=== PATIENT | male | born 1985 | race Caucasian/White ===

== ENCOUNTER 2017-10-05 16:36 | Emergency (ER) | payer MEDICARE ==
--- NOTE | 2017-10-05 17:04 | ERPHSYRPT ---
- History of Present Illness Time Seen by Provider: 10/05/17 16:44 Source: patient Patient Subjective Stated Complaint: pt states for months he has had bilateral lower extremity swelling. pt states his left left has been worse over the past several days. pt is concerned he has a blood clot in his left leg. pt has a history of kidney failure. Triage Nursing Assessment: pt pink, warm, dry. pt ambulated into Er without difficulty. pedal pulses strong and equal bilaterally. redness noted to left calf. negative alejandra's sign to left leg. Physician History: CC: swelling left leg Hx: 32 y/o patient of Dr Lozano/Juan with hx of nephrotic syndrome. He has increased swelling and pain with some redness in the left leg. No hx of venous thromboembolic disease. He sees Dr Martinez. He is on prednisone. No chest pain or dyspnea. Some cough. No fever or chills. Severity: moderate Allergies/Adverse Reactions: Penicillins Allergy (Mild, Verified 10/05/17 16:52) Home Medications: Famotidine 20 mg [Pepcid 20 MG] 20 mg PO BID 12/03/12 [History] Furosemide 20 mg [Lasix 20 mg] 20 mg PO DAILY 12/03/12 [History] Potassium Chloride 20 Meq [Klor-Con 20 MEQ] 20 meq PO BID 12/03/12 [History] Pravastatin Sodium 10 mg [Pravachol 10 MG] 40 mg PO DAILY 12/03/12 [History] Calcium Carbonate/Vitamin D3 [Calcium 600 + Vit D3 Caplet] 1 each PO BID [History] Metoprolol Succinate 50 mg [Toprol Xl 50 MG] 50 mg PO DAILY 04/09/16 [ History] Prednisone 20 mg PO .EVERYOTHERDAY 04/09/16 [History] Ramipril [Altace] 2.5 mg PO DAILY 04/09/16 [History] Acetaminophen [Tylenol Arthritis] 1 tab PO Q6H 07/02/16 [History] Bumetanide 1 mg PO DAILY 10/05/17 [History] Hx Tetanus, Diphtheria Vaccination/Date Given: Yes (up to date) Hx Influenza Vaccination/Date Given: No Hx Pneumococcal Vaccination/Date Given: No Immunizations Up to Date: Yes - Review of Systems Constitutional: Malaise, No Fever, No Chills Eyes: No Symptoms Ears, Nose, & Throat: No Symptoms Respiratory: Cough, No Dyspnea Cardiac: Edema, No Chest Pain, No Syncope Abdominal/Gastrointestinal: No Abdominal Pain, No Nausea, No Vomiting, No Diarrhea Genitourinary Symptoms: No Dysuria Skin: Other (redness left leg), No Rash Neurological: No Headache All Other Systems: Reviewed and Negative - Past Medical History Pertinent Past Medical History: Yes Neurological History: No Pertinent History ENT History: Cataracts Cardiac History: High Cholesterol, Hypertension, Other Respiratory History: Bronchitis, Pneumonia Endocrine Medical History: Hyperthyroidism Musculoskeletal History: Osteoporosis GI Medical History: Ulcer, Other History: Other Psycho-Social History: No Pertinent History Male Reproductive Disorders: No Pertinent History Other Medical History: nephrotic disorder, low potassium. HEART PALPITAITONS - Past Surgical History Past Surgical History: Yes Neuro Surgical History: No Pertinent History Cardiac: No Pertinent History Respiratory: No Pertinent History Gastrointestinal: Hernia Repair Genitourinary: No Pertinent History Musculoskeletal: Orthopedic Surgery Male Surgical History: No Pertinent History Other Surgical History: left KNEE surgery x3, cysts removed from back, HERNIA X 2 - Social History Smoking Status: Never smoker Exposure to second hand smoke: Yes Drug Use: none Patient Lives Alone: No (here with [id number]) - Nursing Vital Signs Nursing Vital Signs: Initial Vital Signs Temperature 98.5 F 10/05/17 16:46 Pulse Rate 107 H 10/05/17 16:46 Respiratory Rate 18 10/05/17 16:46 Blood Pressure 152/71 10/05/17 16:46 O2 Sat by Pulse Oximetry 99 10/05/17 16:46 Pain Scale Pain Intensity 10 - Physical Exam General Appearance: alert Eye Exam: PERRL/EOMI Ears, Nose, Throat Exam: normal ENT inspection, moist mucous membranes Neck Exam: normal inspection, non-tender, supple Respiratory Exam: normal breath sounds Cardiovascular Exam: regular rate/rhythm, No murmur, No friction rub, No gallop Gastrointestinal/Abdomen Exam: soft, other (subjective bloating), No tenderness , No distention, No mass Male Genitalia Exam: other (moderate warts), No testicular tenderness Back Exam: normal inspection, rash (acne folliculitis) Extremity Exam: other (right leg trace swelling. Left leg has 1+ edema, some erythema, and tenderness. Pulses intact.) Neurologic Exam: alert, oriented x 3, cooperative, sensation nml, No motor deficits Skin Exam: warm, dry, No rash SpO2 Interpretation: normal SpO2: 99 Oxygen Delivery: Room Air - Course Nursing assessment & vital signs reviewed: Yes - Radiology Ultrasound Exam left leg Ultrasound: Other (negative for DVT. Edema fluid present.) Ordered Tests: Active Orders 24 hr Category Date Time Status Clean Catch Urine Specimen STAT Care 10/05/17 16:56 Active IV Insertion STAT Care 10/05/17 16:56 Active CHEST 2 VIEWS (PA AND LAT) Stat Exams 10/05/17 16:56 Taken VENOUS UNILAT/LIMITED EXTREMIT [US] Stat Exams 10/05/17 16:55 Ordered CBC W DIFF Stat Lab 10/05/17 17:30 Completed CMP Stat Lab 10/05/17 17:30 Completed UA W/ MICROSCOPIC Stat Lab 10/05/17 17:15 Completed Lab/Rad Data: Laboratory Result Diagrams 10/05/17 17:30 10/05/17 17:30 Laboratory Results 10/05/17 10/05/17 10/05/17 Range/Units 17:30 17:30 17:15 WBC 22.0 H (4.0-10.5) K/mm3 RBC 4.88 (4.1-5.6) M/mm3 Hgb 14.0 (12.5-18.0) gm/dl Hct 41.2 L (42-50) % MCV 84.4 (78-100) fl MCH 28.7 (26-32) pg MCHC 34.0 (32-36) g/dl RDW 14.6 H (11.5-14.0) % Plt Count 352 (150-450) K/mm3 MPV 9.7 H (6-9.5) fl Gran % 87.8 H (36.0-66.0) % Lymphocytes % 6.0 L (24.0-44.0) % Monocytes % 6.1 (0.0-12.0) % Eosinophils % 0.0 (0.00-5.0) % Basophils % 0.1 (0.0-0.4) % Basophils # 0.02 (0-0.4) Sodium 141 (136-145) mEq/L Potassium 4.4 (3.5-5.1) mEq/L Chloride 109 H (98-107) mEq/L Carbon Dioxide 25.3 (21-32) mEq/L Anion Gap 11.5 (5-15) MEQ/L BUN 16 (9-20) mg/dL Creatinine 0.76 (0.55-1.30) mg/dl Estimated GFR > 60 ML/MIN Glucose 128 H (70-110) MG/DL Calcium 7.5 L (8.5-10.1) mg/dL Total Bilirubin 0.10 L (0.2-1.0) mg/dL AST 12 L (15-37) U/L ALT 10 L (12-78) U/L Alkaline Phosphatase 49 (46-116) U/L Serum Total Protein 4.0 L (6.4-8.2) gm/dL Albumin < 0.6 L (3.4-5.0) g/dL Ur Collection Type CLEAN CATCH Urine Color YELLOW (YELLOW) Urine Appearance CLEAR (CLEAR) Urine pH 8.0 (5-6) Ur Specific Chamberlain 1.005 (1.005-1.025) Urine Protein 300 (Negative) Urine Ketones NEGATIVE (NEGATIVE) Urine Blood NEGATIVE (0-5) Sage/ul Urine Nitrite NEGATIVE (NEGATIVE) Urine Bilirubin NEGATIVE (NEGATIVE) Urine Urobilinogen NORMAL (0-1) mg/dL Ur Leukocyte Esterase NEGATIVE (NEGATIVE) Urine Microscopic RBC 0-2 (0-2) /HPF Ur Epithelial Cells RARE (FEW) /HPF Urine Culture Reflexed NO (NO) Urine Glucose NEGATIVE (NEGATIVE) mg/dL Specimen Received 10/05/17 1715 - Progress Progress Note: 10/05/17 17:03 Will get sono to evaluate for DVT. 10/05/17 18:37 Negative for DVT. Leukocytosis presumed secondary to steroids. Will cover with kefzol/keflex for cellulitis. Instr given. 10/05/17 18:40 Pt reports family told him pcn allergic. He has taken keflex in past without problems. Counseled pt/family regarding: lab results, diagnosis, need for follow-up, rad results - Departure Time of Disposition: 18:38 Departure Disposition: Home Clinical Impression: Cellulitis of left leg, Nephrotic syndrome Condition: Stable Critical Care Time: No Referrals: CRISTINA LOZANO MD [Primary Care Provider] - Instructions: Cellulitis -- Adult Additional Instructions: Return for high fever, worsened redness or severe pain, confusion, or concerns. Follow up with Dr Ruy Prado Saturday or Dr Martinez. Rx keflex. Elevate legs. Prescriptions: Cephalexin Mh 500 mg [Keflex 500 mg] 1 cap PO QID #40 capsule
[2017-10-05 17:38] LABS: BASOPHIL % 0.1 % (0.0-0.4); Granulocytes % 87.8 % (36.0-66.0); Mean Cell Volume 84.4 fl (78-100); Mean Corpuscular Hemoglobin 28.7 pg (26-32); Mean Platelet Volume 9.7 fl (6-9.5); Monocytes % 6.1 % (0.0-12.0); Platelet Count 352 K/mm3 (150-450); Red Blood Count 4.88 M/mm3 (4.1-5.6); Red Cell Distribution Width 14.6 % (11.5-14.0)
[2017-10-05 17:44] LABS: Collection Type CLEAN CATCH
[2017-10-05 17:45] LABS: Bilirubin NEGATIVE (NEGATIVE); Blood NEGATIVE Ery/ul (0-5); COMPLETE URINE MICROSCOPIC? YES; Epithelial Cells RARE /HPF (FEW); Glucose NEGATIVE (NEGATIVE); Leukocyte Esterase NEGATIVE (NEGATIVE)
[2017-10-05 17:46] LABS: ADD URINE CULTURE? NO (NO)
[2017-10-05 18:01] LABS: ALKALINE PHOSPHATASE 49 U/L (46-116); ANION GAP 11.5 MEQ/L (5-15); BLOOD UREA NITROGEN 16 mg/dL (9-20); CHLORIDE 109 mEq/L (98-107); Carbon Dioxide 25.3 mEq/L (21-32); Glucose 128 MG/DL (70-110); Potassium 4.4 mEq/L (3.5-5.1); SGOT/AST 12 U/L (15-37); SGPT/ALT 10 U/L (12-78); SODIUM 141 mEq/L (136-145)
[2017-10-05 18:15] LABS: ALBUMIN < 0.6 g/dL (3.4-5.0)
[2017-10-05] MEDS ORDERED: CEFAZOLIN 2 GM-D5W BAG** 2 GM/50 ML ML IV STA (18:31)
[2017-10-05] MEDS ORDERED: KEFLEX 500 MG PO ONE (18:36)
[2017-10-05] MEDS ORDERED: KEFZOL 1 GM ONE (18:43)
[2017-10-05] MEDS ORDERED: D5w 100ML Mini Bag 100 ML 100 ML IV ONE (18:44)
--- NOTE | 2017-10-05 19:27 | XRAY ---
Indication: Edema. Nephrotic syndrome. Comparison: November 13, 2015. PA/lateral chest again demonstrates normal heart and lungs. Bony thorax intact again with scoliosis. No new/acute findings.
[2017-10-05] MEDS ORDERED: KEFLEX 500 MG ONE (19:39)
[2017-10-05 19:51] VITALS: BP 117/64; PULSE 82; O2SAT 97
--- NOTE | 2017-10-06 08:27 | XRAY ---
Indication: Left leg pain and redness. Two-dimensional sonogram and color Doppler imaging of the major venous vessels of the left leg was performed. Comparison: None No thrombus seen in the examined deep venous vessels of the left leg including greater saphenous vein. Veins demonstrate normal compressibility. Venous waveforms are normal with and without augmentation. Impression: Left leg negative for DVT. Comment: Preliminary report was given.
== END 2017-10-05 19:50 | disposition home or self-care (01) ==
LOC: ED 16:36
DX: L03.116 Cellulitis of left lower limb (principal); N04.9 Nephrotic syndrome with unspecified morphologic changes; Z79.899 Other long term (current) drug therapy; E78.00 Pure hypercholesterolemia, unspecified; I10 Essential (primary) hypertension; E05.90 Thyrotoxicosis, unspecified without thyrotoxic crisis or storm
CPT/HCPCS: 36000; 36415; 71020; 80053; 81000; 85025; 93971; 96360; 96365; 99284; J0690; A9270-GY

== ENCOUNTER 2018-08-27 14:21 | Emergency (ER) | payer MEDICARE ==
[2018-08-27] MEDS ORDERED: Sodium Chloride 0.9% 1000 ML 1,000 ML IV STA (15:01)
[2018-08-27] MEDS ORDERED: Sodium Chloride 0.9% 1000 ML 1,000 ML ONE (15:14)
[2018-08-27 15:31] LABS: BASOPHIL % 0.2 % (0.0-0.4); Basophil (Absolute #) 0.02 (0-0.4); Eosinophil % 0.1 % (0.00-5.0); Eosinophil (Absolute #) 0.01 (0-0.5); Granulocyte Absolute (ANC) 9.11 (1.4-6.9); Granulocytes % 87.9 % (36.0-66.0); Hematocrit 36.9 % (42-50); Hemoglobin 12.6 gm/dl (12.5-18.0); Lymphocyte (Absolute #) 0.85 (1.0-4.6); Lymphocytes % 8.2 % (24.0-44.0); Mean Cell Volume 87.2 fl (78-100); Mean Corpuscular Hemoglobin 29.8 pg (26-32); Mean Corpuscular Hgb Concent. 34.1 g/dl (32-36); Mean Platelet Volume 10.7 fl (6-9.5); Monocyte (Absolute #) 0.37 (0.0-1.3); Monocytes % 3.6 % (0.0-12.0); Platelet Count 356 K/mm3 (150-450); Red Blood Count 4.23 M/mm3 (4.1-5.6); Red Cell Distribution Width 12.6 % (11.5-14.0); White Blood Count 10.4 K/mm3 (4.0-10.5)
[2018-08-27 15:42] LABS: ANION GAP 17.3 MEQ/L (5-15); Calcium 9.9 mg/dL (8.4-10.2); Creatinine 1 3.01 mg/dL (0.66-1.25)
[2018-08-27 15:57] LABS: Potassium 6.6 mmol/L (3.5-5.1)
[2018-08-27] MEDS ORDERED: Kayexylate 15 GM/60 ML PO ONE (16:02)
[2018-08-27] MEDS ORDERED: CALCIUM CHLORIDE 10% 1000 MG IV ONE (16:03)
[2018-08-27] MEDS ORDERED: CALCIUM CHLORIDE IV ONE (16:30)
[2018-08-27] MEDS ORDERED: SODIUM CHLORIDE 0.9% IV ONE (16:30)
--- NOTE | 2018-08-27 16:31 | ERPHSYRPT ---
- History of Present Illness Time Seen by Provider: 08/27/18 14:35 Source: patient Exam Limitations: clinical condition Patient Subjective Stated Complaint: Pt states "For the past two days I have been dry heaving and had diarrhea. I just do not feel well." Triage Nursing Assessment: Pt alert and oriented x 3, skin pwd. PT ambultes with an upright steady gait, able to speak in clear full sentences. Pt in no respiratory distress. Physician History: PATIENT WITH A HISTORY OF HYPERTSION, RENAL INSUFFICIENCY AND NEPHROTIC SYNDROME COMPLAINS OF ACUTE ONSET OF WATERY DIARRHEA FOR THE PAST 2 DAYS, 8-10 EPISODES DAILY ASSOCIATED WITH NAUSEA. DENIES FEVER, WEAKNESS, MELENA, ABDOMINAL PAIN OR URINARY SYMPTOMS. Timing/Duration: yesterday Severity: moderate Modifying Factors: Improves With: nothing Associated Symptoms: nausea Allergies/Adverse Reactions: Penicillins Allergy (Mild, Verified 10/05/17 16:52) Home Medications: Famotidine 20 mg [Pepcid 20 MG] 20 mg PO BID 12/03/12 [History] Furosemide 20 mg [Lasix 20 mg] 20 mg PO DAILY 12/03/12 [History] Potassium Chloride 20 Meq [Klor-Con 20 MEQ] 20 meq PO BID 12/03/12 [History] Pravastatin Sodium 10 mg [Pravachol 10 MG] 40 mg PO DAILY 12/03/12 [History] Calcium Carbonate/Vitamin D3 [Calcium 600 + Vit D3 Caplet] 1 each PO BID [History] Metoprolol Succinate 50 mg [Toprol Xl 50 MG] 50 mg PO DAILY 04/09/16 [ History] Prednisone 20 mg PO .EVERYOTHERDAY 04/09/16 [History] Ramipril [Altace] 2.5 mg PO DAILY 04/09/16 [History] Acetaminophen [Tylenol Arthritis] 1 tab PO Q6H 07/02/16 [History] Bumetanide 1 mg PO DAILY 10/05/17 [History] Hx Tetanus, Diphtheria Vaccination/Date Given: Yes Hx Influenza Vaccination/Date Given: No Hx Pneumococcal Vaccination/Date Given: No Immunizations Up to Date: Yes - Review of Systems Constitutional: No Fever, No Chills Eyes: No Symptoms Ears, Nose, & Throat: No Symptoms Respiratory: No Symptoms, No Cough, No Dyspnea Cardiac: No Chest Pain, No Edema, No Syncope Abdominal/Gastrointestinal: No Abdominal Pain, No Nausea, No Vomiting, No Diarrhea Genitourinary Symptoms: No Symptoms, No Dysuria Musculoskeletal: No Symptoms, No Back Pain, No Neck Pain Skin: No Symptoms, No Rash Neurological: No Dizziness, No Focal Weakness, No Sensory Changes Psychological: No Symptoms Endocrine: No Symptoms All Other Systems: Reviewed and Negative - Past Medical History Pertinent Past Medical History: Yes Neurological History: No Pertinent History ENT History: Cataracts Cardiac History: High Cholesterol, Hypertension, Other Respiratory History: Bronchitis, Pneumonia Endocrine Medical History: Hyperthyroidism Musculoskeletal History: Osteoporosis GI Medical History: Ulcer, Other History: Other Psycho-Social History: No Pertinent History Male Reproductive Disorders: No Pertinent History Other Medical History: nephrotic disorder, low potassium. HEART PALPITAITONS - Past Surgical History Past Surgical History: Yes Neuro Surgical History: No Pertinent History Cardiac: No Pertinent History Respiratory: No Pertinent History Gastrointestinal: Hernia Repair Genitourinary: No Pertinent History Musculoskeletal: Orthopedic Surgery Male Surgical History: No Pertinent History Other Surgical History: left KNEE surgery x3, cysts removed from back, HERNIA X 2 - Social History Smoking Status: Never smoker Exposure to second hand smoke: No Drug Use: none Patient Lives Alone: No - Nursing Vital Signs Nursing Vital Signs: Initial Vital Signs Temperature 98.3 F 08/27/18 14:26 Pulse Rate 76 08/27/18 14:26 Respiratory Rate 16 08/27/18 14:26 Blood Pressure 144/61 08/27/18 14:26 O2 Sat by Pulse Oximetry 100 08/27/18 14:26 Pain Scale Pain Intensity 0 - Physical Exam General Appearance: no apparent distress, alert Eye Exam: PERRL/EOMI, eyes nml inspection Ears, Nose, Throat Exam: normal ENT inspection, TMs normal, pharynx normal, moist mucous membranes Neck Exam: normal inspection, non-tender, supple, full range of motion Respiratory Exam: normal breath sounds, lungs clear, No respiratory distress Cardiovascular Exam: regular rate/rhythm, normal heart sounds, normal peripheral pulses Gastrointestinal/Abdomen Exam: soft, normal bowel sounds, other (NONTENDER), No tenderness, No mass Back Exam: normal inspection, normal range of motion, No CVA tenderness, No vertebral tenderness Extremity Exam: normal inspection, normal range of motion, pelvis stable Neurologic Exam: alert, oriented x 3, cooperative, normal mood/affect, nml cerebellar function, nml station & gait, sensation nml, No motor deficits Skin Exam: normal color, warm, dry, No rash Lymphatic Exam: No adenopathy SpO2: 98 Oxygen Delivery: Room Air - Course EKG Interpreted by Me: Sinus Rhythm (RATE OF 66 WITH PEAKED T-WAVES) Ordered Tests: Medication Summary Discontinued Medications Generic Name Dose Route Start Last Admin Trade Name Gertrudis PRN Reason Stop Dose Admin Sodium Chloride 1,000 mls @ 999 mls/hr 08/27/18 15:01 08/27/18 15:16 Sodium Chloride 0.9% 1000 Ml IV 08/27/18 16:01 999 mls/hr .Q1H1M STA Administration Sodium Chloride Confirm 08/27/18 15:14 Sodium Chloride 0.9% 1000 Ml Administered 08/27/18 15:15 Dose 1,000 mls @ ud .ROUTE .STK-MED ONE Calcium Chloride 1,000 mg/ 110 mls @ 165 mls/hr 08/27/18 16:30 08/27/18 16:29 Sodium Chloride IV 08/27/18 17:09 165 mls/hr NOW ONE Administration Sodium Polystyrene Sulfonate 30 g 08/27/18 16:02 08/27/18 16:16 Kayexylate 15 Gm/60 Ml PO 08/27/18 16:03 30 g STAT ONE Administration Lab/Rad Data: Laboratory Result Diagrams 08/27/18 15:01 08/27/18 15:01 Laboratory Results 08/27/18 08/27/18 Range/Units 15:01 15:01 WBC 10.4 (4.0-10.5) K/mm3 RBC 4.23 (4.1-5.6) M/mm3 Hgb 12.6 (12.5-18.0) gm/dl Hct 36.9 L (42-50) % MCV 87.2 (78-100) fl MCH 29.8 (26-32) pg MCHC 34.1 (32-36) g/dl RDW 12.6 (11.5-14.0) % Plt Count 356 (150-450) K/mm3 MPV 10.7 H (6-9.5) fl Gran % 87.9 H (36.0-66.0) % Eos # (Auto) 0.01 (0-0.5) Absolute Lymphs (auto) 0.85 L (1.0-4.6) Absolute Monos (auto) 0.37 (0.0-1.3) Lymphocytes % 8.2 L (24.0-44.0) % Monocytes % 3.6 (0.0-12.0) % Eosinophils % 0.1 (0.00-5.0) % Basophils % 0.2 (0.0-0.4) % Absolute Granulocytes 9.11 H (1.4-6.9) Basophils # 0.02 (0-0.4) Sodium 140 (137-145) mmol/L Potassium 6.6 H* (3.5-5.1) mmol/L Chloride 105 (98-107) mmol/L Carbon Dioxide 24 (22-30) mmol/L Anion Gap 17.3 H (5-15) MEQ/L BUN 36 H (9-20) mg/dL Creatinine 3.01 H (0.66-1.25) mg/dL Estimated GFR 25.3 ML/MIN Glucose 106 (74-106) mg/dL Calcium 9.9 (8.4-10.2) mg/dL - Progress Progress Note: 08/27/18 16:33 IV NORMAL SALINE 1 LITER BOLUS/ HR, KAYEXALATE 30GM ORALLY, CALCIUM CHLORIDE 1GM IVPB OVER 30 MINUTES FOR SERUM K-6.6, DISCUSSED WITH EFFICIENCY CLERK DR NAVARRO AT 1615 ACCEPTS TRANSFER DIRECT ADMIT 08/27/18 16:35 - Departure Time of Disposition: 17:45 Departure Disposition: Observation Clinical Impression: HYPERKALEMIA, ACUTE DIARRHEA Condition: Stable Critical Care Time: No Referrals: CRISTINA LOZANO MD [Primary Care Provider] -
[2018-08-27 17:46] VITALS: O2SAT 98
[2018-08-27 17:52] VITALS: BP 120/60; PULSE 70
== END 2018-08-27 17:57 | disposition short-term general hospital (02) ==
LOC: ED 14:21
DX: E87.5 Hyperkalemia (principal); R19.7 Diarrhea, unspecified; R11.0 Nausea; Z79.899 Other long term (current) drug therapy; Z87.441 Personal history of nephrotic syndrome
CPT/HCPCS: 36415; 80048; 85025; 93005; 93041; 96360; 96365; 99285; A9270-GY

== ENCOUNTER 2020-10-19 09:44 | Day surgery (SDC) | payer MEDICARE ==
[2012-09-28 10:00] VITALS: BP 174/100
[2020-10-19] MEDS ORDERED: LIDOCAINE HCL 2% 100 MG/5 ML IJ ONE (09:45)
[2020-10-19] MEDS ORDERED: Depo-Medrol 40 MG/ML IM ONE (09:45)
[2020-10-19] MEDS ORDERED: DIPRIVAN 200 MG/20 ML IV ONE (12:24)
[2020-10-19] MEDS ORDERED: Ketamine HCl 50 MG/ML ONE (12:24)
--- NOTE | 2020-10-19 14:29 | XRAY ---
Indication: Bilateral L4-S1 MBB. Intraoperative fluoroscopy was provided for 22 seconds. Single digital spot image submitted for interpretation demonstrates posterior needle tips projecting over the expected left and right L4-S1 nerve roots. Correlate with intraoperative findings/report.
--- NOTE | 2020-10-19 15:12 | XRAY ---
22 seconds fluoroscopy time in surgery for bilateral L4-S1 MBB.
[2020-10-19] MEDS ORDERED: Lactated Ringers 1,000 ML IV ONE (16:07)
== END 2020-10-19 13:00 | disposition home or self-care (01) ==
LOC: SDC-PAIN 09:44
PROVIDERS: ATTEND Psychiatry & Neurology Pain Medicine
DX: M47.816 Spondylosis without myelopathy or radiculopathy, lumbar region (principal); N04.9 Nephrotic syndrome with unspecified morphologic changes; I10 Essential (primary) hypertension; Z79.899 Other long term (current) drug therapy
CPT/HCPCS: 64493; 64494; 72020; 77002; 80307; 81002; 82570; 83986; J1030; J2704

== ENCOUNTER 2021-03-15 09:55 | Day surgery (SDC) | payer MEDICARE ==
[2012-09-28 10:00] VITALS: BP 174/100
[2021-03-15] MEDS ORDERED: Decadron 4 MG INJ IV ONE (09:56)
[2021-03-15] MEDS ORDERED: Depo-Medrol 40 MG/ML IM ONE (09:56)
[2021-03-15] MEDS ORDERED: Xylocaine 1% Vial 30 ML PF IJ ONE (09:56)
[2021-03-15] MEDS ORDERED: BUPIVACAINE 0.5% VIAL IJ ONE (09:56)
[2021-03-15] MEDS ORDERED: DIPRIVAN 200 MG/20 ML IV ONE (11:12)
--- NOTE | 2021-03-15 16:12 | XRAY ---
40 seconds fluoroscopy time in surgery for right SI joint and right piriformis muscle injections.
[2021-03-15] MEDS ORDERED: Lactated Ringers 1,000 ML IV ONE (16:39)
--- NOTE | 2021-03-16 22:00 | XRAY ---
Indication: Right sacroiliac and pyriformis muscle injections. Intraoperative fluoroscopy was provided for 40 seconds. 3 digital spot images submitted for interpretation demonstrate one posterior needle tip projected over the expected right pyriformis muscle. A small amount of contrast has been injected for needle tip placement. In addition, 2 other images reveal a posterior needle tip projected over the inferior margin of the right sacroiliac joint. Correlate with intraoperative findings/report.
== END 2021-03-15 11:51 | disposition home or self-care (01) ==
LOC: SDC-PAIN 09:55
PROVIDERS: ATTEND Psychiatry & Neurology Pain Medicine
DX: M46.1 Sacroiliitis, not elsewhere classified (principal); M60.9 Myositis, unspecified; N04.9 Nephrotic syndrome with unspecified morphologic changes; Z79.899 Other long term (current) drug therapy
CPT/HCPCS: 20552; 27096; 72202; 77002; G0260; J1030; J1100; J2001; J2704; Q9966

== ENCOUNTER 2021-04-12 11:03 | Day surgery (SDC) | payer MEDICARE ==
[2012-09-28 10:00] VITALS: BP 174/100
[2021-04-12] MEDS ORDERED: Depo-Medrol 40 MG/ML IM ONE (11:04)
[2021-04-12] MEDS ORDERED: BUPIVACAINE 0.5% VIAL IJ ONE (11:04)
[2021-04-12] MEDS ORDERED: DIPRIVAN 200 MG/20 ML IV ONE (13:48)
--- NOTE | 2021-04-12 14:59 | XRAY ---
Indication: Left SI joint injection. Intraoperative fluoroscopy provided for 32 seconds. 2 digital spot images submitted for interpretation demonstrates posterior needle tip projecting over the inferior left SI joint. Correlate with intraoperative findings/report.
--- NOTE | 2021-04-12 14:59 | XRAY ---
32 seconds fluoroscopy time in surgery for injection of the left SI joint.
[2021-04-12] MEDS ORDERED: Lactated Ringers 1,000 ML IV ONE (16:19)
== END 2021-04-12 14:19 | disposition home or self-care (01) ==
LOC: SDC-PAIN 11:03
PROVIDERS: ATTEND Psychiatry & Neurology Pain Medicine
DX: M46.1 Sacroiliitis, not elsewhere classified (principal); R00.0 Tachycardia, unspecified; M19.90 Unspecified osteoarthritis, unspecified site; I10 Essential (primary) hypertension; N04.9 Nephrotic syndrome with unspecified morphologic changes; Z79.899 Other long term (current) drug therapy
CPT/HCPCS: 27096; 72020; 77002; G0260; J1030; J2704

== ENCOUNTER 2022-12-26 11:19 | Emergency (ER) | payer MEDICARE ==
--- NOTE | 2022-12-26 12:40 | ERPHSYRPT ---
- History of Present Illness Time Seen by Provider: 12/26/22 12:43 Source: patient Patient Subjective Stated Complaint: here for abnormal labs, and muscle cramps Triage Nursing Assessment: pt alert, resp easy, skin w/d/p, abd soft, no edema noted Physician History: Patient is a 37-year-old male with a history of nephrotic syndrome presents to our ED as a referral from his network director for treatment of hypokalemia. Patient states that he followed up with his network director due to experiencing muscle cramps. Patient was recently discharged from [facility] after he received diuresis due to anasarca. Patient states they removed 75 pounds of water. Patient otherwise feels well right now. No active cramping. No chest pain or shortness of breath. No nausea vomiting or diaphoresis. Symptoms are mild to moderate in intensity. Patient voices no other complaints concerns at this time. Timing/Duration: today Severity: moderate Modifying Factors: Improves With: nothing Associated Symptoms: other (Muscle cramping) Allergies/Adverse Reactions: Penicillins Allergy (Mild, Verified 12/26/22 11:54) Home Medications: Famotidine 20 mg [Pepcid 20 MG] 40 mg PO BID 12/03/12 [History] Metoprolol Succinate 50 mg [Toprol Xl 50 MG] 50 mg PO BID 04/09/16 [History] Rosuvastatin Calcium [Crestor] 20 mg PO HS 01/30/19 [History] Bumetanide 2 mg PO BID 11/23/20 [History] Pramipexole Di-HCl 0.5 mg [Mirapex 0.5 MG Tablet] 0.5 mg PO DAILY 11/23/20 [History] Prednisone 20 mg [Deltasone 20 mg] 40 mg PO DAILY 11/23/20 [History] mycophenolate mofetiL [Mycophenolate Mofetil] 750 mg PO BID 11/23/20 [History] Hydrocodone/Acetaminophen [Hydrocodone-Acetamin 7.5-325] 1 ea TID 12/26/22 [History] Hx Tetanus, Diphtheria Vaccination/Date Given: Yes Hx Influenza Vaccination/Date Given: Yes Hx Pneumococcal Vaccination/Date Given: No Immunizations Up to Date: Yes Travel Risk - International Travel Have you traveled outside of the country in past 3 weeks: No - Coronavirus Screening Are you exhibiting any of the following symptoms?: No - Vaccine Status Have you recieved a Covid-19 vaccination: Yes Formal Service Waiter: Unknown - Vaccination Dates Date of 2cond Vaccination (if applicable): 2020 Dates if Unknown: ? - Review of Systems Constitutional: No Symptoms, No Fever, No Chills Eyes: No Symptoms Ears, Nose, & Throat: No Symptoms Respiratory: No Symptoms, No Cough, No Dyspnea Cardiac: No Symptoms, No Chest Pain, No Edema, No Syncope Abdominal/Gastrointestinal: No Symptoms, No Abdominal Pain, No Nausea, No Vomiting, No Diarrhea Genitourinary Symptoms: No Symptoms, No Dysuria Musculoskeletal: No Symptoms, No Back Pain, No Neck Pain Skin: No Symptoms, No Rash Neurological: No Symptoms, No Dizziness, No Focal Weakness, No Sensory Changes Psychological: No Symptoms Endocrine: No Symptoms Hematologic/Lymphatic: No Symptoms Immunological/Allergic: No Symptoms All Other Systems: Reviewed and Negative - Past Medical History Pertinent Past Medical History: Yes Neurological History: No Pertinent History ENT History: Cataracts Cardiac History: High Cholesterol, Hypertension, Other Respiratory History: Bronchitis, Pneumonia Endocrine Medical History: Hyperthyroidism Musculoskeletal History: Osteoporosis GI Medical History: Ulcer, Other History: Other Psycho-Social History: No Pertinent History Male Reproductive Disorders: No Pertinent History Other Medical History: nephrotic disorder, low potassium. HEART PALPITAITONS - Past Surgical History Past Surgical History: Yes Neuro Surgical History: No Pertinent History Cardiac: No Pertinent History Respiratory: No Pertinent History Gastrointestinal: Hernia Repair Genitourinary: No Pertinent History Musculoskeletal: Orthopedic Surgery Male Surgical History: No Pertinent History Other Surgical History: left KNEE surgery x3, cysts removed from back, HERNIA X 2. Right knee replacement - Social History Smoking Status: Never smoker Exposure to second hand smoke: No Drug Use: none Patient Lives Alone: No - Nursing Vital Signs Nursing Vital Signs: Initial Vital Signs Temperature 98 F 12/26/22 11:49 Pulse Rate 98 H 12/26/22 11:49 Respiratory Rate 18 12/26/22 11:49 Blood Pressure 132/79 12/26/22 11:49 O2 Sat by Pulse Oximetry 96 12/26/22 11:49 Pain Scale Pain Intensity 0 - Physical Exam General Appearance: no apparent distress, alert Eye Exam: PERRL/EOMI, eyes nml inspection Ears, Nose, Throat Exam: normal ENT inspection, TMs normal, pharynx normal, moist mucous membranes Neck Exam: normal inspection, non-tender, supple, full range of motion Respiratory Exam: normal breath sounds, lungs clear, airway intact, No respiratory distress Cardiovascular Exam: regular rate/rhythm, normal heart sounds, normal peripheral pulses Gastrointestinal/Abdomen Exam: soft, normal bowel sounds, No tenderness, No mass Back Exam: normal inspection, normal range of motion, No CVA tenderness, No vertebral tenderness Extremity Exam: normal inspection, normal range of motion, pelvis stable Neurologic Exam: alert, oriented x 3, cooperative, normal mood/affect, nml cerebellar function, nml station & gait, sensation nml, No motor deficits Skin Exam: normal color, warm, dry, No rash Lymphatic Exam: No adenopathy SpO2 Interpretation: normal SpO2: 99 O2 Delivery: Room Air - Course Nursing assessment & vital signs reviewed: Yes Ordered Tests: Active Orders 24 hr Category Date Time Status IV Insertion STAT Care 12/26/22 12:17 Active CBC W DIFF Stat Lab 12/26/22 12:26 Completed CMP Stat Lab 12/26/22 12:26 Completed MAG [MAGNESIUM] Stat Lab 12/26/22 12:48 Completed Medication Summary Generic Name Dose Route Start Last Admin Trade Name Freq PRN Reason Stop Dose Admin Magnesium Sulfate/Dextrose 100 mls @ 100 mls/hr 12/26/22 14:30 12/26/22 15:12 Magnesium 1 Gm / 100 Ml D5w IV 12/26/22 16:29 100 mls/hr Q1H ALLEN Administration Discontinued Medications Generic Name Dose Route Start Last Admin Trade Name Freq PRN Reason Stop Dose Admin Magnesium Oxide 400 mg 12/27/22 10:00 Magnesium Oxide 400 Mg Tablet PO 01/26/23 09:59 DAILY ALLEN Potassium Chloride 60 meq 12/26/22 14:15 12/26/22 14:34 Potassium Chloride Tab 10 Meq Tab PO 12/26/22 14:16 60 meq STAT ONE Administration Potassium Chloride Confirm 12/26/22 14:32 Potassium Chloride Tab 10 Meq Tab Administered 12/26/22 14:33 Dose 60 meq PO .[employer] Secure ONE Lab/Rad Data: Laboratory Result Diagrams 12/26/22 12:26 12/26/22 12:26 Laboratory Results 12/26/22 12/26/22 12/26/22 Range/Units 12:48 12:26 12:26 WBC 18.3 H (4.0-10.5) x10^3/uL RBC 3.46 L (4.1-5.6) x10^6/uL Hgb 9.3 L (12.5-18.0) g/dL Hct 28.8 L (42-50) % MCV 83.2 (78-100) fL MCH 26.9 (26-32) pg MCHC 32.3 (32-36) g/dL RDW 14.2 H (11.5-14.0) % Plt Count 429 (150-450) x10^3/uL MPV 9.5 (7.5-11.0) fL Gran % 91.4 H (36.0-66.0) % Immature Gran % (Auto) 1.6 H (0.00-0.4) % Nucleat RBC Rel Count 0.0 (0.00-0.1) % Eos # (Auto) 0.01 (0-0.5) x10^3/uL Immature Gran # (Auto) 0.29 H (0.00-0.03) x10^3u/L Absolute Lymphs (auto) 0.91 L (1.0-4.6) x10^3/uL Absolute Monos (auto) 0.32 (0.0-1.3) x10^3/uL Absolute Nucleated RBC 0.00 (0.00-0.01) x10^3u/L Lymphocytes % 5.0 L (24.0-44.0) % Monocytes % 1.7 (0.0-12.0) % Eosinophils % 0.1 (0.00-5.0) % Basophils % 0.2 (0.0-0.4) % Absolute Granulocytes 16.73 H (1.4-6.9) x10^3/uL Basophils # 0.03 (0-0.4) x10^3/uL Sodium 131 L (137-145) mmol/L Potassium 3.1 L (3.5-5.1) mmol/L Chloride 97 L (98-107) mmol/L Carbon Dioxide 29 (22-30) mmol/L Anion Gap 8.7 (5-15) MEQ/L BUN 15 (9-20) mg/dL Creatinine 0.79 (0.66-1.25) mg/dL Estimated GFR > 60.0 ML/MIN Glucose 113 H (74-106) mg/dL Calcium 7.7 L (8.4-10.2) mg/dL Magnesium 1.5 L (1.6-2.3) mg/dL Total Bilirubin 0.10 L (0.2-1.3) mg/dL AST 22 (17-59) U/L ALT 20 (0-50) U/L Alkaline Phosphatase 69 (38-126) U/L Serum Total Protein 5.2 L (6.3-8.2) g/dL Albumin 2.7 L (3.5-5.0) g/dL - Progress Progress: improved Progress Note: Patient 37-year-old male with a history of nephrotic syndrome presents to our ED as a referral from his network director for replacement of potassium. Patient's network director ordered outpatient labs and found his potassium is deficient. Patient asymptomatic. Patient has no symptoms. Patient recently diuresed due to anasarca. This diuresis may have affected patient's electrolyte. Tests ordered include CBC CMP and magnesium level. CBC reveals a leukocytosis however patient states he is on steroids chronically for nephrotic syndrome which would explain the elevated WBC. Potassium 3.1. Magnesium 1.5. We contacted Dr. Kevin arteaga who advised administering 2 g magnesium sulfate IV and 60 mEq potassium chloride p.o. Patient treated as advised per his network director. Switchboard Installer also advised magnesium oxide 400 mg twice a day as well as 20 mEq potassium chloride daily for a week. The prescription was forwarded to patient's pharmacy electronically. Portions of this note were created with voice recognition technology. There may be grammatical, spelling, punctuation or sound alike errors 12/26/22 15:[address].: Other (We contacted Dr. Kevin arteaga patient's network director who advised 60 mg potassium chloride now then 20 mg daily for 1 week. 2 g magnesium now then 400 mg twice daily mag oxide.) Counseled pt/family regarding: lab results, diagnosis, need for follow-up - Departure Departure Disposition: Home Clinical Impression: Leukocytosis, Normocytic anemia, Hyponatremia, Hypocalcemia, Hypomagnesemia Condition: Stable Critical Care Time: No Referrals: CRISTINA LOZANO MD [Primary Care Provider] - Follow up/PCP as directed Prescriptions: Potassium Chloride Tab* [Klor Con] 20 meq PO DAILY 7 Days #7 tab Magnesium Oxide 400 mg [Mag-Ox 400] 400 mg PO BID 5 Days #10 tablet
[2022-12-26 12:48] LABS: ALBUMIN 2.7 g/dL (3.5-5.0); ALKALINE PHOSPHATASE 69 U/L (38-126); ANION GAP 8.7 MEQ/L (5-15); BLOOD UREA NITROGEN 15 mg/dL (9-20); CHLORIDE 97 mmol/L (98-107); Calcium 7.7 mg/dL (8.4-10.2); Carbon Dioxide 29 mmol/L (22-30); Creatinine 1 0.79 mg/dL (0.66-1.25); EST GLOMERULAR FILTRATION RATE > 60.0 ML/MIN; Glucose 113 mg/dL (74-106); Potassium 3.1 mmol/L (3.5-5.1); SGOT/AST 22 U/L (17-59); SGPT/ALT 20 U/L (0-50); SODIUM 131 mmol/L (137-145); Total Protein 5.2 g/dL (6.3-8.2)
[2022-12-26 12:56] LABS: Absolute Neutrophil Ct (ANC) 16.73 x10^3/uL (1.4-6.9); BASOPHIL % 0.2 % (0.0-0.4); Basophil (Absolute #) 0.03 x10^3/uL (0-0.4); Eosinophil % 0.1 % (0.00-5.0); Eosinophil (Absolute #) 0.01 x10^3/uL (0-0.5); Hematocrit 28.8 % (42-50); Hemoglobin 9.3 g/dL (12.5-18.0); IMMATURE GRAN # 0.29 x10^3u/L (0.00-0.03); IMMATURE GRAN % 1.6 % (0.00-0.4); Lymphocyte (Absolute #) 0.91 x10^3/uL (1.0-4.6); Mean Cell Volume 83.2 fL (78-100); Mean Corpuscular Hemoglobin 26.9 pg (26-32); Mean Corpuscular Hgb Concent. 32.3 g/dL (32-36); Mean Platelet Volume 9.5 fL (7.5-11.0); Monocyte (Absolute #) 0.32 x10^3/uL (0.0-1.3); Monocytes % 1.7 % (0.0-12.0); Neutrophil % 91.4 % (36.0-66.0); Platelet Count 429 x10^3/uL (150-450); Red Blood Count 3.46 x10^6/uL (4.1-5.6); Red Cell Distribution Width 14.2 % (11.5-14.0); White Blood Count 18.3 x10^3/uL (4.0-10.5)
[2022-12-26] MEDS ORDERED: Klor Con PO ONE ×2 (14:15→14:32)
[2022-12-26] MEDS ORDERED: Magnesium 1 Gm / 100 Ml D5W*** 100 ML IV ONE ×2 (14:32→15:11)
[2022-12-26] MEDS: Magnesium 1 Gm / 100 Ml D5W*** 100 ML IV SCH ×2 (14:34→15:12)
[2022-12-26 15:51] VITALS: BP 141/73; PULSE 92
[2022-12-26 15:54] VITALS: O2SAT 99
[2022-12-27] MEDS ORDERED: MAG-OX 400 PO SCH (10:00)
== END 2022-12-26 15:59 | disposition home or self-care (01) ==
LOC: ED 11:19
DX: D72.829 Elevated white blood cell count, unspecified (principal); D64.9 Anemia, unspecified; E87.1 Hypo-osmolality and hyponatremia; E83.51 Hypocalcemia; E83.42 Hypomagnesemia; E87.6 Hypokalemia; E78.5 Hyperlipidemia, unspecified; I10 Essential (primary) hypertension; Z79.891 Long term (current) use of opiate analgesic; Z79.899 Other long term (current) drug therapy
CPT/HCPCS: 36000; 36415; 80053; 83735; 85025; 99284; J3475; A9270-GY